=== PATIENT | female | born 1995 | race Two or more races ===

== ENCOUNTER 2019-06-06 16:55 | Emergency (ER) | payer OTHER ==
[~2019-06-06] VITALS: Ht 157.5 cm; Wt 47.6 kg
[~2019-06-06 16:55] MED LIST: AMBIEN CR12.5 MG/BL PO
== END 2019-06-06 20:05 | disposition home or self-care (01) ==
LOC: ER 16:55
DX: S91.242A Puncture wound with foreign body of left great toe with damage to nail, initial encounter (principal); W18.09XA Striking against other object with subsequent fall, initial encounter; Y93.89 Activity, other specified; Y92.89 Other specified places as the place of occurrence of the external cause; Y99.8 Other external cause status